=== PATIENT | female | born 1970 | race Caucasian/White ===

== ENCOUNTER 2021-11-12 13:40 | Outpatient (REF) | payer BC, SELFPAY ==
[2021-11-12 14:39] LABS: IDNOW Serial# 16C4AD1C
[2021-11-12 14:40] LABS: COVID-19 Test Negative (Negative)
== END 2021-11-12 13:41 | disposition home or self-care (01) ==
LOC: HO.LAB 13:40
PROVIDERS: Visit Provider Internal Medicine
DX: Z20.822 Contact with and (suspected) exposure to COVID-19 (principal)
CPT/HCPCS: 87635; C9803